=== PATIENT | female | born 1940 | race Caucasian/White ===

== ENCOUNTER → 2017-05-10 | Outpatient (CLI) | payer MEDICARE, BC | LOC: MC.RAD 14:00 | DX: Z12.31 Encounter for screening mammogram for malignant neoplasm of breast (principal) ==

== ENCOUNTER → 2018-05-30 | Outpatient (CLI) | payer MEDICARE, BC | LOC: MC.RAD 10:59 | DX: Z12.31 Encounter for screening mammogram for malignant neoplasm of breast (principal) ==

== ENCOUNTER → 2020-05-07 | Outpatient (CLI) | payer MEDICARE, BC | LOC: MC.RAD 13:33 | DX: Z12.31 Encounter for screening mammogram for malignant neoplasm of breast (principal) ==

== ENCOUNTER → 2022-03-10 | Outpatient (CLI) | payer MEDICARE, BC | LOC: MC.RAD 09:52 | DX: N63.20 Unspecified lump in the left breast, unspecified quadrant (principal) ==

== ENCOUNTER → 2022-03-17 | Outpatient (CLI) | payer MEDICARE, BC | LOC: MC.RAD 09:24 | DX: N63.25 Unspecified lump in the left breast, overlapping quadrants (principal) ==